=== PATIENT | female | born 1940 | race Caucasian/White ===

== ENCOUNTER → 2023-12-29 12:23 | Outpatient (REF) | payer MEDICARE, OTHER, SELFPAY ==
[2023-12-29 13:37] LABS: % Basophils 0.7 % (0-2); % Eosinophils 0.4 % (0-6); % Immature Granulocytes 0.2 % (0-0.5); % Lymphocytes 23.4 % (20.5-51.1); % Monocytes 7.7 % (1.7-9.3); % Neutrophils 67.6 % (42.2-75.2); Absolute Lymphocytes 1.3 10^3/uL (1.2-3.4); Absolute Monocytes 0.4 10^3/uL (0.1-0.6); Absolute Neutrophils 3.6 10^3/uL (1.4-6.5); Hematocrit 38.6 % (37.0-47.0); Hemoglobin 13.6 g/dL (12.0-16.0); Mean Corp Hgb Conc. 35.2 g/dL (33.0-37.0); Mean Corpuscular Hgb 31.9 pg (27.0-31.0); Mean Corpuscular Volume 90.4 fL (81.0-99.0); Mean Platelet Volume 10.5 fL (7.4-10.4); Nucleated Red Blood Cells % 0 %; Platelet Count 171 10^3/uL (130-400); Red Blood Cell Count 4.27 10^6/uL (4.20-5.40); Red Cell Dist. Width 13.3 % (11.5-14.5); White Blood Cell Count 5.4 10^3/uL (4.8-10.8)
[2023-12-29 14:28] LABS: ALT (SGPT) 26 U/L (0-35); AST (SGOT) 31 U/L (14-36); Albumin 4.2 g/dl (3.5-5.0); Alkaline Phosphatase 51 U/L (38-126); Blood Urea Nitrogen 26 mg/dl (7-17); Calcium 9.7 mg/dl (8.4-10.2); Carbon Dioxide 28 mmol/L (22-30); Chloride 102 mmol/L (98-107); Glucose 104 mg/dl (70-99); HDL Cholesterol 88 mg/dl; LDL Cholesterol, Calculated 86 mg/dl; Potassium 4.1 mmol/L (3.5-5.1); Sodium 142 mmol/L (135-145); Total Bilirubin 0.8 mg/dl (0.2-1.3); Total Cholesterol 201 mg/dl (50-199); Total Protein 6.5 g/dl (6.3-8.2); Triglyceride 135 mg/dl (10-149); Very Low Density Lipoprotein 27 mg/dl (0-30); eGFR 45.19
== END ==
LOC: REG 12:23
PROVIDERS: ATTENDING PHYSICIAN Internal Medicine
DX: E78.5 Hyperlipidemia, unspecified (principal); I10 Essential (primary) hypertension
CPT/HCPCS: 36415; 80053; 80061; 85025

== ENCOUNTER 2024-03-17 12:56 | Emergency (ER) | payer MEDICARE, OTHER, SELFPAY ==
[2024-03-17 12:58] VITALS: BP 98/54
--- NOTE | 2024-03-17 13:19 | ED.GENMED ---
History of Present Illness
General
Chief Complaint: Cough
Time Seen by Provider: 03/17/24 12:59
History of Present Illness
History of Present Illness:
83-year-old female presents from [facility] for evaluation of cough and fatigue. She has had a cough for approximately 1 week, states she feels fine does not know why she is here. Denies any chest pain or leg swelling. Sent from [facility]
with concern for dehydration
Review of Systems
Review of Systems
Allergies reviewed?: Yes
All Other Systems: ROS reviewed and negative except as documented in HPI and ROS
Phy Exam
Physical Exam
Physical Exam:
GEN: Well appearing, NAD, WDWN
HEENT: Oral mucosa moist, no scleral icterus
Cardiac: Regular rate and rhythm, no murmurs
Lung: No respiratory distress, no tachypnea, occasional clearable rhonchi on exam
MSK: No gross deformity or injuries
Skin: Good color, no pallor or jaundice, no rashes
Neuro: AO x3, moves all extremities freely
Psych: Calm, cooperative
Course
Orders/Labs/Results
Orders:
Orders
03/17/24 13:18
CR Chest - 2 Views Urgent
Comment:
Reason For Exam: cough/rhonchi
03/17/24 13:26
COVID-19 Antigen Urgent
Source: Nasal Swab
Complete Blood Count/With Diff Urgent
Comprehensive Metabolic Panel Urgent
Influenza A+B Rapid Molecular Urgent
DENISSE Source: Nasal Swab
Specimen Description:
03/17/24 14:09
0.9% Sodium Chloride 1000 ml [Nss] 1,000 ml IV BOLUS
03/17/24 15:30
Doxycycline [Vibramycin] 100 mg PO NOW STA
Abnormal Lab Results
03/17/24
13:26
MCH 31.4 H pg
(27.0-31.0)
Abs Immat Gran (auto) 0.1 H 10^3/uL
(0-0.05)
Absolute Neuts (auto) 9.1 H 10^3/uL
(1.4-6.5)
Absolute Lymphs (auto) 0.7 L 10^3/uL
(1.2-3.4)
Neutrophils % 86.5 H %
(42.2-75.2)
Lymphocytes % 6.9 L %
(20.5-51.1)
Chloride 96 L mmol/L
(98-107)
Carbon Dioxide 32 H mmol/L
(22-30)
BUN 59 H mg/dl
(7-17)
Creatinine 1.9 H mg/dL
(0.6-1.0)
Glucose 139 H mg/dl
(70-99)
Total Protein 6.0 L g/dl
(6.3-8.2)
03/17/24 13:26
03/17/24 13:26
Vital Signs
Initial and Last Documented VS:
Initial Vital Signs
Temp Pulse Resp BP Pulse Ox
97.8 F 51 16 98/54 97
03/17/24 12:58 03/17/24 12:58 03/17/24 12:58 03/17/24 12:58 03/17/24 12:58
Last Documented Vital Signs
Temp Pulse Resp BP Pulse Ox
97.8 F 50 18 135/56 100
03/17/24 12:58 03/17/24 17:36 03/17/24 17:36 03/17/24 17:36 03/17/24 17:36
MDM/Problems Addressed
MDM/Problems Addressed:
Patient's workup is reassuring. Given that she has clearable rhonchi at her age we will treat for potential bacterial etiology to bronchitis with doxycycline
*Critical Care Note
Total Time (30-74mins, 75-104mins- exclusive of procedures): Not Applicable
ED Attending Note
-
Portions of this chart may have been created with voice recognition software.� Occasional wrong word or��sound alike� substitutions may have occurred due to the inherent limitations of voice recognition software.
Discharge Plan
Departure
Patient Disposition: Home (Routine Discharge)
Date of Disposition: 03/17/24
Time of Disposition: 15:31
Patient with high blood pressure during this ER visit?: No
Discharge Problem:
Acute bronchitis
Instructions: Acute Bronchitis, Adult (DC)
Prescriptions:
New
doxycycline hyclate 100 mg tablet
100 mg PO BID Qty: 9 0RF
Referrals:
UNKNOWN - PT DOES,NOT KNOW [Family Provider] -
Interventions
Interventions:
*Risk Screen - Suicide Last Done: 03/17/24 12:58
*General Assessment Last Done: 03/17/24 12:58
*Neglect/Abuse Screening Last Done: 03/17/24 12:58
ED- Fall Risk Assessment Last Done: 03/17/24 13:52
*ED COVID-19 Vaccine History Last Done: 03/17/24 13:52
ED- Pulmonary Assessment Last Done: 03/17/24 13:52
Discharge Date and Time
Print Language: HUNGARIAN
[2024-03-17 13:49] LABS: % Basophils 0.2 % (0-2); % Eosinophils 0.1 % (0-6); % Immature Granulocytes 0.5 % (0-0.5); % Lymphocytes 6.9 % (20.5-51.1); % Monocytes 5.8 % (1.7-9.3); % Neutrophils 86.5 % (42.2-75.2); Absolute Immature Granulocytes 0.1 10^3/uL (0-0.05); Absolute Lymphocytes 0.7 10^3/uL (1.2-3.4); Absolute Monocytes 0.6 10^3/uL (0.1-0.6); Absolute Neutrophils 9.1 10^3/uL (1.4-6.5); Hematocrit 39.2 % (37.0-47.0); Hemoglobin 13.9 g/dL (12.0-16.0); Mean Corp Hgb Conc. 35.5 g/dL (33.0-37.0); Mean Corpuscular Hgb 31.4 pg (27.0-31.0); Mean Corpuscular Volume 88.5 fL (81.0-99.0); Mean Platelet Volume 10.1 fL (7.4-10.4); Nucleated Red Blood Cells % 0 %; Platelet Count 185 10^3/uL (130-400); Red Blood Cell Count 4.43 10^6/uL (4.20-5.40); Red Cell Dist. Width 13.5 % (11.5-14.5); White Blood Cell Count 10.5 10^3/uL (4.8-10.8)
[2024-03-17 13:54] VITALS: BP 108/57
[2024-03-17 14:04] LABS: COVID-19 Antigen Negative (Negative)
[2024-03-17 14:07] LABS: ALT (SGPT) 17 U/L (0-35); AST (SGOT) 31 U/L (14-36); Albumin 3.6 g/dl (3.5-5.0); Alkaline Phosphatase 66 U/L (38-126); Blood Urea Nitrogen 59 mg/dl (7-17); Calcium 9.9 mg/dl (8.4-10.2); Carbon Dioxide 32 mmol/L (22-30); Chloride 96 mmol/L (98-107); Glucose 139 mg/dl (70-99); Potassium 3.7 mmol/L (3.5-5.1); Sodium 137 mmol/L (135-145); Total Bilirubin 1.3 mg/dl (0.2-1.3); eGFR 26.04
[2024-03-17 14:21] VITALS: BP 121/74
[2024-03-17] MEDS: NSS 1000 IV (14:45)
[2024-03-17] MEDS: VIBRAMYCIN 100 MG PO (15:46)
[2024-03-17 17:36] VITALS: BP 135/56
== END 2024-03-17 18:32 | disposition home or self-care (01) ==
LOC: EMR 12:56
PROVIDERS: Physician Assistant; EMERGENCY PHYSICIAN Student in an Organized Health Care Education/Training Program
DX: J20.9 Acute bronchitis, unspecified (principal); Z11.52 Encounter for screening for COVID-19; Z88.8 Allergy status to other drugs, medicaments and biological substances; Z91.040 Latex allergy status
CPT/HCPCS: 99284; 96360; 71046; 80053; 85025; 87502; 87811

== ENCOUNTER 2024-03-18 08:36 | Inpatient (IN) | payer MEDICARE, OTHER, SELFPAY ==
[2024-03-17 19:53] VITALS: BP 103/80
--- NOTE | 2024-03-17 20:00 | ED.GENMED ---
History of Present Illness
General
Chief Complaint: Social Service Referral
Source: patient
Exam Limitations: dementia
Time Seen by Provider: 03/17/24 19:58
History of Present Illness
History of Present Illness:
See MDM
Past History
Past History
ED Past Medical History: Psychiatric
ED Past Surgical History: None
Social History
Tobacco: Non-smoker
Alcohol: None
Phy Exam
Physical Exam
Physical Exam:
See MDM
Course
Orders/Labs/Results
Orders:
Orders
03/17/24 19:58
Case Management Consult ONCE
Case Management Consult: Discharge Planning
Vital Signs
Initial and Last Documented VS:
Initial Vital Signs
Temp Pulse Resp BP Pulse Ox
97.5 F 54 20 103/80 98
03/17/24 19:53 03/17/24 19:53 03/17/24 19:53 03/17/24 19:53 03/17/24 19:53
Last Documented Vital Signs
Temp Pulse Resp BP Pulse Ox
97.5 F 54 20 103/80 98
03/17/24 19:53 03/17/24 19:53 03/17/24 19:53 03/17/24 19:53 03/17/24 19:53
MDM/Problems Addressed
Differential Diagnosis Includes:
HPI and MDM Narrative:
83-year-old female presenting back to the emergency department for placement. She was seen earlier today and diagnosed with likely bronchitis and was started on antibiotics. Apparently, she was going back home with her . However, it
appears that her is . Patient is pleasantly demented. She was brought back to the emergency department for placement. Patient offers no
Physical exam
General: Well appearing and non-toxic
HEENT: protecting airway
Neck: appears supple
CV: No evidence of cyanosis
Resp: No accessory muscle use
Abd: Non-distended
Extremities: No deformities
Neuro: alert. Pleasantly demented
Psych: Normal affect
Skin: Intact
Problems Addressed including Acute and Chronic Conditions affecting care:
1. Shortness of breath
Acuity: acute
Prognosis: stable
Details: Will continue antibiotics as previously started
2. Dementia
Acuity: acute
Prognosis: stable
Details: Patient is unable to care for herself. Will admit for placement
Differential Diagnosis (but not limited to): Dementia, bronchitis, pneumonia
Testing considered: CT head
Drug therapy (if applicable): OTC meds, please see d/c instruction regarding Rx drugs
Amount and/or Complexity of Data Reviewed
Clinical info obtained from: Patient
External data reviewed: N/A
Labs I independently reviewed (but not limited to): N/A
Radiology: N/A
Pulse Ox: not hypoxic
EKG independently reviewed: N/A
Furnace Tender: N/A
Critical Care: N/A
Risk of Complication:
Social Determinants of health: Poor social support
Discussed with other providers: Hospitalist
Escalation of Care includes Admit/Obs: A given her dementia and living situation, will admit for case management evaluation
Occasional wrong word or 'sound a like' substitutions may have occurred due to the inherent limitations of voice recognition software. Read the chart carefully and recognize, using context, where substitutions have occurred.
*Critical Care Note
Total Time (30-74mins, 75-104mins- exclusive of procedures): Not Applicable
ED Attending Note
-
Portions of this chart may have been created with voice recognition software.� Occasional wrong word or��sound alike� substitutions may have occurred due to the inherent limitations of voice recognition software.
Discharge Plan
Departure
Patient Disposition: Admit
Date of Disposition: 03/17/24
Time of Disposition: 20:04
Admit to: Med/Surg
Presentation/result/management discussed w/ accepting MD/DO: Hospitalist
Discharge Problem:
Case management patient, Acute bronchitis
Prescriptions:
No Action
doxycycline hyclate 100 mg tablet
100 mg PO BID Qty: 9 0RF
Interventions
Interventions:
*Risk Screen - Suicide Last Done: 03/17/24 19:51
*General Assessment Last Done: 03/17/24 19:51
*Neglect/Abuse Screening Last Done: 03/17/24 19:51
*ED COVID-19 Vaccine History Last Done: 03/17/24 19:51
Discharge Date and Time
Print Language: DUTCH
--- NOTE | 2024-03-17 20:41 | HPS.HSE ---
Family Physician
-
Family Physician: INTERVIEWE UNKNOWN - PT NOT
Chief Complaint
-
Cough x 1 week, lives alone with history of dementia
History of Present Illness
83-year-old female seen earlier today for bronchitis possible bacterial etiology, cough x 1 week. She was treated with nebulizers and given prescription for antibiotics. Case management arranged EMS transport home to [facility] as patient
states her was there.. Upon arrival at home by EMS they noted the patient lives alone has known history of dementia and apparently the is . They brought her back due to concern for her current living situation compounded by
dementia. She denies headache, fever, chills, sore throat, chest pain, palpitations, abdominal pain, nausea, vomiting, diarrhea, urinary symptoms.
She has past medical history of dementia undiagnosed, HTN, possible SBO with bowel resection per patient, ambulatory dysfunction uses walker for long distance, severe [place], vision impairment uses glasses for reading and distance.
Medical History
Past Medical History
Past Medical History: Reports Other
Additional Past Medical History:
Dementia
HTN
Past Surgical History: Reports Other
Additional Past Surgical History:
Tonsillectomy as child
Patient thinks small bowel obstruction with colon resection has linear abdominal incision
Social History
Tobacco: Non-smoker
Alcohol: None
Drug: None
Personal: (She believes approximately 2 years)
Living: Alone ([facility] independent)
Employment: Retired
Family History
Family History: Other (Father late 60s OR, mother unsure)
Allergies / Home Medications
Allergies reflects when Allergies were last updated in joiz.
Home Medications with original date entered in joiz
Allergy/Medication List:
Allergies
Allergy/AdvReac Type Severity Reaction Status Date / Time
latex Allergy Intermediate Swelling Verified 03/17/24 14:23
lidocaine Allergy Mild Unknown Verified 01/08/25 14:23
Home Medications
atenolol 50 mg tablet 50 mg PO DAILY 03/17/24
doxycycline hyclate 100 mg tablet 100 mg PO BID #9 tabs 03/17/24
triamterene 37.5 mg-hydrochlorothiazide 25 mg capsule 1 cap PO DAILY 03/17/24
Review of Systems
-
History Source: Patient
A 12 point ROS was completed and negative except as noted: Yes
Constitutional: Denies Fever, Fatigue or Chills
EENT: Reports Other (Chronic [place] chronic slight slower when talking likely due to hearing deficit); Denies Sore Throat or Runny Nose
Respiratory: Reports Cough and Trouble Breathing
Cardiac: Denies Chest Pain, Diaphoresis, Palpitations or Syncope
Abdomen/GI: Denies Abdominal Pain, Nausea, Vomiting, Diarrhea, Constipated, Bloody Stools or Black Stools
: Denies Dysuria, Frequency or Flank Pain
Musculoskeletal: Denies Joint Pain or Edema
Skin: Denies Itching or Rash
Neurological: Denies Dizzy, Headache or Weakness
Endocrine: Reports No Symptoms
Hematologic/Lymphatic: Reports No Symptoms
Psych: Reports Calm
Physical Exam
Vital Signs
Vital Signs
Temp Pulse Resp BP Pulse Ox
97.5 F 54 20 103/80 98
03/17/24 19:53 03/17/24 19:53 03/17/24 19:53 03/17/24 19:53 03/17/24 19:53
Physical Exam
General: Comfortable, Conversant and Other (Pleasantly confused female who lives alone at [facility] independent no she is at the hospital unsure why or how she got here unsure of recent symptoms); No Fever or Chills
HEENT: NormoCephalic, Anicteric, PERRLA, Experiment Conjunctivae, No Ptosis, Hearing Impaired and Other (Slight slurring of speech likely secondary to hearing impairment)
Respiratory: Clear and Other (Cough during exam several times); No Wheezes, Rales or Rhonchi
Cardiac: S1/S2 and Regular Rhythm; No Murmur, Rub, Gallop or Peripheral Edema
Breast: Deferred by me
GI: Soft, Non Tender, Non Distended, Normal Bowel Sounds and No Hepatosplenomegaly
Rectal: Deferred by Provider
Genito-urinary: Deferred by me
Musculoskeletal: No Clubbing, No Cyanosis and No Edema
Skin: Warm and Dry; No Rash
Neuro: Awake, Alert (No she is at the hospital unsure of year unsure of why she is here current symptoms, past medical history, admits to memory impairment states she thought it was just due to her age), Nonfocal/grossly intact, Cranial Nerves
Intact and Other ([place] does not have any hearing aids but states she has them at home, chronic slight slurred speech due to hearing deficit); No Facial Droop, Tremors or Sedated
Psych: Calm
Impression/Plan
-
Impression/plan:
Observation MedSurg
#Dementia with concern unsafe living conditions-lives alone
-Consult case management for placement, patient lives alone at [facility]
-Consult OT for BCAT eval
-Consult PT/OT
#Acute bronchitis treated earlier today 03/17/2024 in ER
Afebrile, negative WBC
-Continue doxycycline 100 mg twice daily
-DuoNeb as needed
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
Creat 1.9 /bun 59 previous 1.10 December 2023
Will give IV NSS 80 cc/h
Repeat BMP in a.m.
# Hypotension secondary to dehydration/HTN�benign
BP 103/80
Hold atenolol 50 mg daily, triamterene/HCTZ daily
-IV NSS 80 cc/h
-Follow BP and BMP
#[place] does not have any hearing aids but states she has them at home,
#Chronic slight slurred speech due to hearing deficit
#Chronic ambulatory dysfunction
Patient reports uses walker for long distance
#Vision impairment states wears glasses for reading and distance
DVT prophylaxis
Subcu Lovenox
DNR per patient she states 'at my age I do not want all of that done' discussion included CPR including ventilator
--- NOTE | 2024-03-17 21:27 | W.PN.UPDATE ---
Update Note
Progress Note Update
Patient seen in conjunction with ZOEY. I agree with the assessment on history and physical as well as the assessment and plan.
This is a 83-year-old female with unclear past medical history. She is on antihypertensives at home but recalls but is unclear whether she is taking any of them. She was seen earlier in the day for a wet sounding cough when diagnosed with acute
bronchitis. Labs and imaging were negative at that time and she was started on doxycycline and discharged from the emergency department. When the EMS crew brought at home they felt it was unsafe and they decided to bring her back to the emergency
department. Patient herself was unclear on why she was brought back to the ED. She has forgotten most of the conversation that she had earlier in the day. She could not really tell me why she was in the emergency department. She lives in the
independent living [facility]. She lives by herself. Has distant relatives in [place]. She has no children and her spouse is few years ago.
She is well-appearing on exam and in no acute distress. Neurologically intact. Noticed a wet sounding cough but he was not bringing up any mucus.
In the ED blood pressure was 100/80 with a pulse of 54 satting 98% on room air. He was afebrile. Respiratory rate was in the mid teens. CBC was completely normal. Electrolytes were okay with mild hypokalemia. Creatinine is elevated at 1.9 up
from 1.2 about a year ago. BUN was also elevated at 59. Mild hypokalemia and low pulse suggest that she might have been taking the antihypertensives.
She is being brought in to the hospital for case management given concern for inability to care for self at home with progressive dementia.
A&P
Chronic progressive dementia. Unsafe at home per EMS.
- admit to med/surg observation
- pt ot eval
- neuropsych testing
- case management consultation
- holding her triamterene and hctz for now
- holding metoprolol but monitor for rebound tachycardia.
- continue doxycycline to complete course for acute bronchitis
- supportive measures
DVT PPX - SCD
Code status - DNR
[2024-03-17] MEDS: NSS 1000 IV (22:09)
[2024-03-17 23:24] VITALS: BP 124/59
[2024-03-18 00:27] VITALS: BMI 22.3
[2024-03-18 05:52] LABS: % Basophils 0.3 % (0-2); % Eosinophils 0.2 % (0-6); % Immature Granulocytes 0.3 % (0-0.5); % Lymphocytes 7.5 % (20.5-51.1); % Monocytes 6.5 % (1.7-9.3); % Neutrophils 85.2 % (42.2-75.2); Absolute Lymphocytes 0.9 10^3/uL (1.2-3.4); Absolute Monocytes 0.8 10^3/uL (0.1-0.6); Absolute Neutrophils 10.2 10^3/uL (1.4-6.5); Hematocrit 38.5 % (37.0-47.0); Hemoglobin 13.3 g/dL (12.0-16.0); Mean Corp Hgb Conc. 34.5 g/dL (33.0-37.0); Mean Corpuscular Hgb 31.6 pg (27.0-31.0); Mean Corpuscular Volume 91.4 fL (81.0-99.0); Nucleated Red Blood Cells % 0 %; Platelet Count 160 10^3/uL (130-400); Red Blood Cell Count 4.21 10^6/uL (4.20-5.40); Red Cell Dist. Width 13.9 % (11.5-14.5)
[2024-03-18 06:13] LABS: ALT (SGPT) 14 U/L (0-35); AST (SGOT) 30 U/L (14-36); Albumin 3.1 g/dl (3.5-5.0); Alkaline Phosphatase 64 U/L (38-126); Blood Urea Nitrogen 50 mg/dl (7-17); Carbon Dioxide 23 mmol/L (22-30); Chloride 103 mmol/L (98-107); Estimated Creatinine Clearance 25 ml/min; Glucose 78 mg/dl (70-99); Potassium 3.8 mmol/L (3.5-5.1); Sodium 136 mmol/L (135-145); Total Bilirubin 1.2 mg/dl (0.2-1.3); Total Protein 5.4 g/dl (6.3-8.2); eGFR 34.58
--- NOTE | 2024-03-18 08:02 | W.PN.HOSP.TC ---
Today's Communication/Plan
-
continue IVF
follow labs
Case Management
Assessment / Plan
Assessment / Plan
#Dementia with concern unsafe living conditions-lives alone, in Independent Living
-Consult case management for placement, patient lives alone at [facility], should be advanced to Assisted Living situation or as per facility decision, but does not appear capable to return to independent living
-Consult OT for BCAT eval
-Consult PT/OT
#Acute bronchitis treated earlier today 03/17/2024 in ER
Afebrile, negative WBC
-Continue doxycycline 100 mg twice daily
-would change DuoNeb from as needed, to scheduled
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
Creat 1.9 /bun 59 previous 1.10 December 2023
Will continue IV NSS 80 cc/h
Repeat BMP in a.m.
BUN/Creat 12/28/ 26/1.2-->admission 59/1.9-->50/1.5
# Hypotension secondary to dehydration/HTN�benign
BP 103/80 on admission, 03/17 124/59
Hold atenolol 50 mg daily, triamterene/HCTZ daily
-IV NSS 80 cc/h
-Follow BP and BMP
#LIZA does not have any hearing aids but states she has them at home,
#Chronic slight slurred speech due to hearing deficit
#Chronic ambulatory dysfunction
Patient reports uses walker for long distance
#Vision impairment states wears glasses for reading and distance
With multiple significant issues as listed above, will change status to full admit
DVT prophylaxis
Subcu Lovenox
DNR per patient she states 'at my age I do not want all of that done' discussion included CPR including ventilator
Anticipated Discharge: > 48 hours
Subjective/Interval History
-
Date of Service: March 18, 2024
Awake, alert, still feels congested
Objective Data
-
Labs:
Laboratory Results
03/18/24
05:20
WBC 12.0 H
Hgb 13.3
Hct 38.5
Plt Count 160
Sodium 136
Potassium 3.8
Chloride 103
Carbon Dioxide 23
BUN 50 H
Creatinine 1.5 H
Glucose 78
Calcium 9.0
Total Bilirubin 1.2
AST 30
ALT 14
Alkaline Phosphatase 64
Vital Signs:
Vital Signs
Temp Pulse Resp BP Pulse Ox
97.5 F 50 16 124/59 98
03/18/24 07:49 03/17/24 23:24 03/17/24 23:24 03/17/24 23:24 03/17/24 23:45
I&O
03/17/24 03/18/24 03/19/24
06:59 06:59 06:59
Intake Total 960 / 960
Balance 960 / 960
Review of Systems
-
Unable to obtain full review of systems at this time due to: Dementia (unclear how much is baseline vs acute illness on top of baseline impairment)
History Source: Patient and Coordinated Provider
Constitutional: Denies Fever
EENT: Reports No Symptoms Reported
Respiratory: Reports Cough, Trouble Breathing and Wheezing
Cardiac: Reports No Symptoms; Denies Chest Pain
Abdomen/GI: Reports No Symptoms
Genitourinary: Reports No Symptoms
Neuro: Reports Weakness
Physical Exam
-
General: Well Developed, Well Nourished, No Apparent Distress and Respiratory Distress (with ambulation)
HEENT: Normocephalic, Atraumatic and Moist Mucous Membranes
Respiratory: Wheezes (coarse expiratory wheeze)
Cardiac: Regular Rhythm and S1/S2
GI: Soft, Nontender and Nondistended
Musculoskeletal: No Clubbing, No Cyanosis and No Edema
Neuro: Awake and Alert; Negative Oriented (significant cognitive impairment)
Psych: Calm
[2024-03-18] MEDS: VIBRAMYCIN 100 MG PO ×2 (08:34→20:53)
[2024-03-18 08:47] VITALS: BP 133/51
[2024-03-18 09:25] VITALS: BP 104/57; BP 108/53; BP 135/62; BP 76/44
[2024-03-18 10:08] VITALS: BP 104/57; BP 108/53; BP 76/44; PULSE 74
[2024-03-18] MEDS: NSS 1000 IV ×2 (10:57→23:29)
[2024-03-18] MEDS: DUONEB 3 ML INH ×2 (11:57→20:09)
--- NOTE | 2024-03-18 14:14 | CM ---
Addendum entered by Andie Noble 03/18/24 15:38:
PT recommended SNF; referral sent to [facility] via [facility]
Original Note:
Received a call from Winifred @ [facility] this morning;
Per Winifred, Patient's and his is today. Per Winifred, patient does not have a Power of Manager Laboratory
Per Winifred, patient and her lived in Independent Living @ [facility]; patient is forgetful; ambulated with a Rolling Walker; and is Hard of Hearing
Winifred provided other contacts: [id number], Sarah # [phone]; and Friend, Oriana # [phone]
Discharge plan to be determined; [facility] may be able to accept her for Respite Care until POA for patient is established
--- NOTE | 2024-03-18 15:44 | PTCARENOTE ---
Report tubed to [facility], spoke to Purnima.
[2024-03-18] MEDS: DUONEB INH (15:51)
[2024-03-18 16:00] VITALS: BP 125/54
[2024-03-18] MEDS: DESENEX/MITRAZOL/ZEASORB TOPICAL (16:26)
--- NOTE | 2024-03-18 17:31 | PTCARENOTE ---
Received pt from ED, AAOx1 (self) pleasant, VSS, bed alarm- IVF as ordered
[2024-03-18] MEDS: DESENEX/MITRAZOL/ZEASORB 1 APPLIC TOPICAL (20:53)
[2024-03-18 23:16] VITALS: BP 141/63
[2024-03-19 07:08] VITALS: BP 139/70
[2024-03-19] MEDS: DUONEB 3 ML INH ×4 (07:23→19:18)
[2024-03-19 07:25] LABS: % Basophils 0.2 % (0-2); % Eosinophils 0.3 % (0-6); % Immature Granulocytes 0.7 % (0-0.5); % Lymphocytes 6.8 % (20.5-51.1); % Monocytes 7.7 % (1.7-9.3); % Neutrophils 84.3 % (42.2-75.2); Absolute Immature Granulocytes 0.1 10^3/uL (0-0.05); Absolute Lymphocytes 0.8 10^3/uL (1.2-3.4); Absolute Monocytes 0.9 10^3/uL (0.1-0.6); Absolute Neutrophils 9.6 10^3/uL (1.4-6.5); Hematocrit 35.7 % (37.0-47.0); Hemoglobin 12.3 g/dL (12.0-16.0); Mean Corp Hgb Conc. 34.5 g/dL (33.0-37.0); Mean Corpuscular Hgb 31.3 pg (27.0-31.0); Mean Corpuscular Volume 90.8 fL (81.0-99.0); Mean Platelet Volume 10.3 fL (7.4-10.4); Nucleated Red Blood Cells % 0 %; Platelet Count 151 10^3/uL (130-400); Red Blood Cell Count 3.93 10^6/uL (4.20-5.40); Red Cell Dist. Width 13.9 % (11.5-14.5); White Blood Cell Count 11.4 10^3/uL (4.8-10.8)
[2024-03-19 07:52] LABS: Blood Urea Nitrogen 39 mg/dl (7-17); Calcium 8.2 mg/dl (8.4-10.2); Carbon Dioxide 29 mmol/L (22-30); Chloride 102 mmol/L (98-107); Estimated Creatinine Clearance 25 ml/min; Glucose 88 mg/dl (70-99); Potassium 3.4 mmol/L (3.5-5.1); Sodium 139 mmol/L (135-145); eGFR 34.58
[2024-03-19] MEDS: VIBRAMYCIN 100 MG PO ×2 (08:25→20:09)
[2024-03-19] MEDS: DESENEX/MITRAZOL/ZEASORB TOPICAL (08:25)
[2024-03-19] MEDS: NSS 1000 IV (11:39)
--- NOTE | 2024-03-19 11:55 | W.PN.HOSP.TC ---
Addendum entered and electronically signed by Daniel Haddad MD 03/19/24 12:32:
Sarah, sister in law called requesting update, called back and no answer [phone]
Original Note:
Today's Communication/Plan
-
adjust IVF
speech consult
Assessment / Plan
Assessment / Plan
#Dementia with concern unsafe living conditions-lives alone, in Independent Living
-Consult case management for placement, patient lives alone at [facility], should be advanced to Assisted Living situation or as per facility decision, but does not appear capable to return to independent living
-Consult OT for BCAT eval
-Consulted PT/OT
Gisele MCMAHAN tells me she has been accepted to [facility] and they should have a bed available in next couple of days
#Acute bronchitis treated earlier 03/17/2024 in ER
Afebrile, negative WBC
-Continue doxycycline 100 mg twice daily
-would change DuoNeb from as needed, to scheduled, does sound clearer on limited exam
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
Creat 1.9 /bun 59 previous 1.10 December 2023
Will continue IV
Repeat BMP in a.m.
BUN/Creat 12/29/23 26/1.2-->admission 59/1.9-->50/1.5-->39/1.5
will adjust IVF, but continue for now
hypokalemic
probably associated with kidneys opening up
# Hypotension secondary to dehydration/HTN�benign
BP 103/80 on admission, 03/17 124/59, 03/19 139/70
Will resume atenolol 50 mg daily, but stop triamterene/HCTZ daily
-Follow BP and BMP
#LIZA does not have any hearing aids but states she has them at home,
#Chronic slight slurred speech due to hearing deficit
#Chronic ambulatory dysfunction
Patient reports uses walker for long distance
#Vision impairment states wears glasses for reading and distance
With multiple significant issues as listed above, will change status to full admit
DVT prophylaxis
Subcu Lovenox
DNR per patient she states 'at my age I do not want all of that done' discussion included CPR including ventilator
Anticipated Discharge: 24 - 48 hours
Subjective/Interval History
-
Date of Service: March 19, 2024
Mentation impaired
Objective Data
-
Labs:
Laboratory Results
03/19/24
06:44
WBC 11.4 H
Hgb 12.3
Hct 35.7 L
Plt Count 151
Sodium 139
Potassium 3.4 L
Chloride 102
Carbon Dioxide 29
BUN 39 H
Creatinine 1.5 H
Glucose 88
Calcium 8.2 L
Vital Signs:
Vital Signs
Temp Pulse Resp BP Pulse Ox
97.4 F 76 16 139/70 94
03/19/24 07:08 03/19/24 11:15 03/19/24 11:15 03/19/24 07:08 03/19/24 11:15
I&O
03/18/24 03/19/24 03/20/24
06:59 06:59 06:59
Intake Total 960 / 960 1080 / 1080
Balance 960 / 960 1080 / 1080
Review of Systems
-
Unable to obtain full review of systems at this time due to: Dementia (unclear how much is baseline vs acute illness on top of baseline impairment)
History Source: Patient and Coordinated Provider
Constitutional: Denies Fever
EENT: Reports No Symptoms Reported
Respiratory: Reports Cough, Trouble Breathing and Wheezing
Cardiac: Reports No Symptoms; Denies Chest Pain
Abdomen/GI: Reports No Symptoms
Genitourinary: Reports No Symptoms
Neuro: Reports Weakness
Physical Exam
-
General: Well Developed, Well Nourished, No Apparent Distress and Respiratory Distress (with ambulation)
HEENT: Normocephalic, Atraumatic and Moist Mucous Membranes
Respiratory: Clear to Auscultation (taking only shallow breaths)
Cardiac: Regular Rhythm and S1/S2
GI: Soft, Nontender and Nondistended
Musculoskeletal: No Clubbing, No Cyanosis and No Edema
Neuro: Awake and Alert; Negative Oriented (significant cognitive impairment, knows her name, tells me she is from [place], otherwise not able to provide further information)
Psych: Calm
[2024-03-19] MEDS: TENORMIN 25 MG PO (13:04)
[2024-03-19] MEDS: D5/0.45%NSS with KCL 20 MEQ 1000 IV (13:05)
--- NOTE | 2024-03-19 14:03 | CM ---
Addendum entered by Gisele Serra 03/19/24 14:11:
[facility]
Report: [phone]

Original Note:
CM reviewed chart, discussed with Winifred from [facility] ([facility]) able to accept patient Friday. Patient resides in [place] at [facility], spouse recently passed. Attempts to call patients sister in law, Sarah ([phone]), no response,
voicemail left. Attempted to call JAMIL Gastelum, no response ([phone]). Please call Kathleen in Admissions at [phone] on Friday to confirm patient discharge to [facility]. CM will continue to follow for all discharge planning needs.
Plan; [facility] SNF Friday03/21/24, will need Covid prior to d/c
Kathleen: [phone]
[2024-03-19 15:53] VITALS: BP 133/63
--- NOTE | 2024-03-19 17:08 | CM ---
Spoke with Winifred from [facility].
Sister in law Sarah- home number [phone], cell phone # [phone].
[2024-03-19] MEDS: DESENEX/MITRAZOL/ZEASORB 1 APPLIC TOPICAL (20:08)
[2024-03-19 23:44] VITALS: BP 108/51
[2024-03-20] MEDS: D5/0.45%NSS with KCL 20 MEQ 1000 IV ×2 (02:37→14:27)
[2024-03-20] MEDS: DUONEB 3 ML INH ×4 (07:29→19:13)
[2024-03-20 08:00] LABS: Blood Urea Nitrogen 32 mg/dl (7-17); Calcium 8.1 mg/dl (8.4-10.2); Carbon Dioxide 26 mmol/L (22-30); Chloride 104 mmol/L (98-107); Estimated Creatinine Clearance 31 ml/min; Glucose 114 mg/dl (70-99); Potassium 3.3 mmol/L (3.5-5.1); Sodium 136 mmol/L (135-145); eGFR 45.19
[2024-03-20 08:19] VITALS: BP 129/68
[2024-03-20] MEDS: VIBRAMYCIN 100 MG PO ×2 (09:17→19:51)
[2024-03-20] MEDS: TENORMIN 25 MG PO (09:17)
[2024-03-20] MEDS: DESENEX/MITRAZOL/ZEASORB 1 APPLIC TOPICAL ×2 (09:20→19:51)
--- NOTE | 2024-03-20 13:01 | PTOTSP ---
SPEECH THERAPY SWALLOW EVALUATION:
Patient exhibits clinical signs of oropharyngeal dysphagia, likely chronic related to dementia and acutely exacerbated by bronchitis. Patient reported odynophagia, with sublingual mucosa appearing abnormal - red/yellow, swollen in some areas,
asymmetrical. Dr. Haddad/RN notified. Guarded bolus acceptance due to odynophagia at this time. Patient remains at risk for aspiration and related complications given impaired cognitive status. Recommend IDDSI Level 4 Puree diet, thin liquids.
Medications whole with thin liquid as tolerated. Aspiration precautions: Upright positioning; Small single sips/bites; 100% supervision; Monitor for signs of aspiration; D/c oral diet if any decline in mental/respiratory status. Oral care 3x/day to
reduce risk for nosocomial infection. ST to follow, determine indication for instrumental assessment of swallowing as appropriate, assess diet tolerance and modify as appropriate, and provide continued diagnostic swallow therapy as appropriate.
RECOMMEND:
1) IDDSI Level 4 Puree diet, thin liquids
2) Medications whole with thin liquid as tolerated
3) Aspiration precautions: Upright positioning; Small single sips/bites; 100% supervision; Monitor for signs of aspiration; D/c oral diet if any decline in mental/respiratory status
4) Oral care 3x/day
5) ST to follow, determine indication for instrumental assessment of swallowing as appropriate
--- NOTE | 2024-03-20 13:52 | W.PN.HOSP.TC ---
Addendum entered and electronically signed by Daniel Haddad MD 03/20/24 14:44:
tongue is apparently sore, minimal white area on top of tongue, ?low grade thrush, will try Mycelex
Original Note:
Today's Communication/Plan
-
adjust diet
K supplement
laxative
Assessment / Plan
Assessment / Plan
#Dementia with concern unsafe living conditions-lives alone, in Independent Living
-Consult case management for placement, patient lives alone at [facility], should be advanced to Assisted Living situation or as per facility decision, but does not appear capable to return to independent living
-Consult OT for BCAT eval
-Consulted PT/OT
Gisele MCMAHAN tells me she has been accepted to [facility] and they should have a bed available in next couple of days
completed BCAT/SF at 09/27 indicating moderate dementia
#Acute bronchitis treated earlier 03/17/2024 in ER
Afebrile, negative WBC
-Continue doxycycline 100 mg twice daily
-would change DuoNeb from as needed, to scheduled, does sound clearer on limited exam
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
Creat 1.9 /bun 59 previous 1.10 December 2023
Will continue IV
Repeat BMP in a.m.
BUN/Creat 12/29/23 26/1.2-->admission 59/1.9-->50/1.5-->39/1.5-->32/1.2
IVF continue for now
hypokalemic
probably associated with kidneys opening up
# Hypotension secondary to dehydration/HTN�benign
BP 103/80 on admission, 03/17 124/59, 03/19 139/70 03/20 129/68
Will resume atenolol 50 mg daily, but stop triamterene/HCTZ daily
-Follow BP and BMP
#LIZA does not have any hearing aids but states she has them at home,
#Chronic slight slurred speech due to hearing deficit
#Chronic ambulatory dysfunction
Patient reports uses walker for long distance
#Vision impairment states wears glasses for reading and distance
With multiple significant issues as listed above, will change status to full admit
DVT prophylaxis
Subcu Lovenox
DNR per patient she states 'at my age I do not want all of that done' discussion included CPR including ventilator
Anticipated Discharge: 24 - 48 hours
Subjective/Interval History
-
Date of Service: March 20, 2024
No BM since admission
Objective Data
-
Labs:
Laboratory Results
03/20/24
06:37
Sodium 136
Potassium 3.3 L
Chloride 104
Carbon Dioxide 26
BUN 32 H
Creatinine 1.2 H
Glucose 114 H
Calcium 8.1 L
Vital Signs:
Vital Signs
Temp Pulse Resp BP Pulse Ox
97.8 F 60 18 129/68 97
03/20/24 08:19 03/20/24 08:19 03/20/24 08:19 03/20/24 08:19 03/20/24 08:19
I&O
03/19/24 03/20/24 03/21/24
06:59 06:59 06:59
Intake Total 1080 / 1080 1320 / 1320
Balance 1080 / 1080 1320 / 1320
Review of Systems
-
Unable to obtain full review of systems at this time due to: Dementia (unclear how much is baseline vs acute illness on top of baseline impairment)
History Source: Patient and Coordinated Provider
Constitutional: Denies Fever
EENT: Reports No Symptoms Reported
Respiratory: Reports Cough, Trouble Breathing and Wheezing
Cardiac: Reports No Symptoms; Denies Chest Pain
Abdomen/GI: Reports No Symptoms
Genitourinary: Reports No Symptoms
Neuro: Reports Weakness
Physical Exam
-
General: Well Developed, Well Nourished, No Apparent Distress and Respiratory Distress (with ambulation)
HEENT: Normocephalic, Atraumatic and Moist Mucous Membranes
Respiratory: Clear to Auscultation (taking only shallow breaths)
Cardiac: Regular Rhythm and S1/S2
GI: Soft, Nontender and Nondistended
Musculoskeletal: No Clubbing, No Cyanosis and No Edema
Neuro: Awake and Alert; Negative Oriented (significant cognitive impairment, knows her name, tells me she is from [place], otherwise not able to provide further information)
Psych: Calm
[2024-03-20] MEDS: DULCOLAX 10 MG RECTAL (14:32)
[2024-03-20] MEDS: MILK OF MAGNESIA PO (14:32)
[2024-03-20] MEDS: MYCELEX TROCHE 10 MG PO ×3 (15:39→21:04)
[2024-03-20] MEDS: MILK OF MAGNESIA 30 ML PO (15:41)
[2024-03-20 15:50] VITALS: BP 134/79
[2024-03-20 23:55] VITALS: BP 141/81
[2024-03-21] MEDS: D5/0.45%NSS with KCL 20 MEQ 1000 IV (02:58)
[2024-03-21 06:27] LABS: Blood Urea Nitrogen 28 mg/dl (7-17); Calcium 8.5 mg/dl (8.4-10.2); Carbon Dioxide 25 mmol/L (22-30); Chloride 104 mmol/L (98-107); Estimated Creatinine Clearance 31 ml/min; Glucose 81 mg/dl (70-99); Magnesium 1.6 mg/dl (1.6-2.3); Potassium 4.1 mmol/L (3.5-5.1); Sodium 136 mmol/L (135-145); eGFR 45.19
[2024-03-21 07:05] VITALS: BP 131/69
[2024-03-21] MEDS: DUONEB 3 ML INH ×2 (07:28→11:10)
[2024-03-21] MEDS: TENORMIN 25 MG PO (07:57)
[2024-03-21] MEDS: MYCELEX TROCHE 10 MG PO ×2 (07:57→10:59)
[2024-03-21] MEDS: VIBRAMYCIN 100 MG PO (07:58)
[2024-03-21] MEDS: DESENEX/MITRAZOL/ZEASORB 1 APPLIC TOPICAL (08:05)
--- NOTE | 2024-03-21 09:59 | W.PN.HOSP.TC ---
Today's Communication/Plan
-
DC to [facility]
Assessment / Plan
Assessment / Plan
#Dementia with concern unsafe living conditions-lives alone, in Independent Living
-Consult case management for placement, patient lives alone at [facility], should be advanced to Assisted Living situation or as per facility decision, but does not appear capable to return to independent living
-Consult OT for BCAT eval
-Consulted PT/OT
Gisele MCMAHAN tells me she has been accepted to [facility] and okay to dc 03/21
completed BCAT/SF at 09/27 indicating moderate dementia
#Acute bronchitis treated earlier 03/17/2024 in ER
Afebrile, negative WBC
-Continue doxycycline 100 mg twice daily
-would change DuoNeb from as needed, to scheduled, does sound clearer on limited exam
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
Creat 1.9 /bun 59 previous 1.10 December 2023
Will continue IV
Repeat BMP in a.m.
BUN/Creat 12/29/23 26/1.2-->admission 59/1.9-->50/1.5-->39/1.5-->32/1.2-->28/1.2
IVF to stop
Thrush
minimal improvement past 24 hrs, continue Mycelex, may require Diflucan if does not fully respond
hypokalemic
probably associated with kidneys opening up
# Hypotension secondary to dehydration/HTN�benign
BP 103/80 on admission, 03/17 124/59, 03/19 139/70 03/20 129/68
Will resume atenolol 50 mg daily, but stop triamterene/HCTZ daily
-Follow BP and BMP
BP is perfect without the Dyazide, will not dc on Dyazide
constipation
had good BM yesterday
#LIZA does not have any hearing aids but states she has them at home,
#Chronic slight slurred speech due to hearing deficit
#Chronic ambulatory dysfunction
Patient reports uses walker for long distance
#Vision impairment states wears glasses for reading and distance
With multiple significant issues as listed above, status changed to full admit
DVT prophylaxis
Subcu Lovenox
DNR per patient she states 'at my age I do not want all of that done' discussion included CPR including ventilator
More than 30 minutes spent in discharge including
Final examination of the patient
Summarizing hospital stay
Instructions for continuing care to all relevant caregivers
Preparation of discharge records, prescriptions, and referral forms
Total time spent (in minutes): 45
Anticipated Discharge: Today
Subjective/Interval History
-
Date of Service: March 21, 2024
Appears more awake and alert, still with tongue pain
Objective Data
-
Labs:
Laboratory Results
03/21/24
05:44
Sodium 136
Potassium 4.1
Chloride 104
Carbon Dioxide 25
BUN 28 H
Creatinine 1.2 H
Glucose 81
Calcium 8.5
Vital Signs:
Vital Signs
Temp Pulse Resp BP Pulse Ox
97.7 F 69 16 131/69 98
03/21/24 07:05 03/21/24 07:31 03/21/24 07:31 03/21/24 07:05 03/21/24 07:31
I&O
03/20/24 03/21/24 03/22/24
06:59 06:59 06:59
Intake Total 1320 / 1320 480 / 480
Balance 1320 / 1320 480 / 480
Review of Systems
-
Unable to obtain full review of systems at this time due to: Dementia (unclear how much is baseline vs acute illness on top of baseline impairment, though better today)
History Source: Patient and Coordinated Provider
Constitutional: Denies Fever
EENT: Reports No Symptoms Reported
Respiratory: Reports Cough, Trouble Breathing and Wheezing
Cardiac: Reports No Symptoms; Denies Chest Pain
Abdomen/GI: Reports No Symptoms
Genitourinary: Reports No Symptoms
Neuro: Reports Weakness
Physical Exam
-
General: Well Developed, Well Nourished, No Apparent Distress and Respiratory Distress (with ambulation)
HEENT: Normocephalic, Atraumatic, Moist Mucous Membranes and Thrush (under tongue, especially on left side)
Respiratory: Clear to Auscultation (taking deeper breaths)
Cardiac: Regular Rhythm and S1/S2
GI: Soft, Nontender and Nondistended
Musculoskeletal: No Clubbing, No Cyanosis and No Edema
Neuro: Awake and Alert; Negative Oriented (significant cognitive impairment, knows her name, tells me she is from [place], otherwise not able to provide further information)
Psych: Calm
--- NOTE | 2024-03-21 10:46 | CM ---
Plan: Discharge to [facility] today
Ambulance suspect artist supervisor scheduled for 1300
Report# [phone]
[2024-03-21 11:45] LABS: COVID-19 Antigen Negative (Negative)
[2024-03-21 12:45] VITALS: BP 139/80
--- NOTE | 2024-03-21 13:26 | W.DS.TRANS ---
DC Summary - Director Quality Assurance
-
Discharge Instructions:
Discharge Diagnosis/Procedures Asthmatic Bronchitis, Thrush, Weakness
Diet Grind all food
Activity With assistance
Driving Restrictions No driving
Bathing Restrictions None
Blood Work CBC, BMP in 1 week
Other Services PT,OT
Instructions:
Stand-Alone Forms:
Changes to Home Medications: Yes
Discharge Medications:
DC Medications w/original date entered in [employer]
atenolol 50 mg tablet 50 mg PO DAILY Blood Pressure 03/17/24
doxycycline hyclate 100 mg tablet 100 mg PO BID #9 tabs 03/17/24
clotrimazole 10 mg cliff 10 mg PO 5/D #35 tabs 03/21/24
ipratropium 0.5 mg-albuterol 3 mg (2.5 mg base)/3 mL nebulization soln 3 ml inhalation R QID #0 mL 03/21/24
magnesium hydroxide 400 mg/5 mL oral suspension (Milk of Magnesia) 30 ml PO QIDPRN PRN constipation #0 mL 03/21/24
Home Medication Changes
stop Dyazide
Mycelex for thrush for next 7 days
Pending Results: No
== END 2024-03-21 13:00 | DRG 884 ==
LOC: 4 EAST ACU 08:36
PROVIDERS: Clinical Nurse Specialist Family Health; ADMITTING PHYSICIAN Internal Medicine; ATTENDING PHYSICIAN Internal Medicine; EMERGENCY PHYSICIAN Student in an Organized Health Care Education/Training Program
DX: F03.90 Unspecified dementia, unspecified severity, without behavioral disturbance, psychotic disturbance, mood disturbance, and anxiety (principal); B37.0 Candidal stomatitis; N17.9 Acute kidney failure, unspecified; J20.9 Acute bronchitis, unspecified; Z66 Do not resuscitate; I12.9 Hypertensive chronic kidney disease with stage 1 through stage 4 chronic kidney disease, or unspecified chronic kidney disease; N18.32 Chronic kidney disease, stage 3b; J45.909 Unspecified asthma, uncomplicated; E87.6 Hypokalemia; H54.7 Unspecified visual loss; I95.89 Other hypotension; E86.0 Dehydration; Z11.52 Encounter for screening for COVID-19; Z79.899 Other long term (current) drug therapy
CPT/HCPCS: 80048; 80053; 83735; 85025; 87070; 87811; 92610; 94640; 97167; 99284